=== PATIENT | female | born 1955 | race Caucasian/White ===

== ENCOUNTER 2024-04-18 13:47 | Observation (INO) | payer MEDICARE ==
[2024-04-18] VITALS (21 sets, daily range): BP systolic 77–143; BP diastolic 38–71
[~2024-04-18] VITALS: Ht 154.9 cm; Wt 91.0 kg
[2024-04-18] MEDS ORDERED: SODIUM CHLORIDE 0.9% 1,000 ML IV ONE (14:10)
[2024-04-18 14:25] LABS: BASO% 0.3 % (0-3); HEMATOCRIT 34.6 % (37.0-47.0); HEMOGLOBIN 11.2 g/dl (12.0-16.0); IMMATURE GRANULOCYTES 0.1 % (0.0-5.0); LYMPH% 17.4 % (15-41); MEAN CELL VOLUME 89.9 fL CALC (80.0-100.0); MEAN CORPUSCULAR HGB 29.1 pG CALC (26.0-32.0); MEAN CORPUSCULAR HGB CONC 32.4 g/dL CAL (32.0-36.0); MONO% 11.2 % (2-13); NEUT# 7.34 thou/uL (2.00-7.15); RED BLOOD COUNT 3.85 mill/uL (4.20-5.60); RED CELL DISTRI WIDTH 14.2 % (11.5-15.5)
[2024-04-18 14:41] LABS: ALBUMIN 3.6 g/dL (3.2-5.0); ALKALINE PHOSPHATASE 84 u/l (38-126); ANION GAP 10 (6-22 (CALC)); BILIRUBIN, TOTAL 1.7 mg/dL (0.02-1.3); BUN 22 mg/dL (8-23); BUN/CREATININE RATIO 27 (12-20 (CALC)); CARBON DIOXIDE 22 mmol/l (22-30); CHLORIDE 109 mmol/l (95-108); CREATININE 0.8 mg/dL (0.5-1.0); ESTIMATED GFR 81 ML/MIN (>=90 (CALC)); POTASSIUM 3.9 mmol/l (3.5-5.1); SGOT/AST 51 u/l (9-36); SODIUM 137 mmol/l (137-146); TOTAL PROTEIN 6.5 g/dL (6.3-8.2)
[2024-04-18] MEDS ORDERED: OMEPRAZOLE DR40 MG PO (14:53)
[2024-04-18] MEDS ORDERED: ZESTRIL10 M1 PO (14:54)
[2024-04-18] MEDS ORDERED: ATORVASTATIN CA40 MG PO (14:54)
[2024-04-18] MEDS ORDERED: CARVEDILOL25 MG PO (14:55)
[2024-04-18] MEDS ORDERED: ASPIRINCHW 81MG PO (14:55)
[2024-04-18] MEDS ORDERED: BRILINTA90 MG PO (14:55)
[2024-04-18] MEDS ORDERED: [UNRECOGNIZED DRUG - OTHER] PO (14:56)
[2024-04-18] MEDS ORDERED: LEXAPRO10 MG PO (14:56)
[2024-04-18 15:29] LABS: URINE BILIRUBIN - DIPSTICK Negative (NEGATIVE); URINE BLOOD DIPSTICK Negative (NEGATIVE); URINE GLUCOSE - DIPSTICK >=1000 mg/dL (NEGATIVE); URINE KETONE Negative (NEGATIVE); URINE LEUK ESTERASE Negative (NEGATIVE); URINE NITRITE - DIPSTICK Negative (Negative); URINE PH 5.5 (4.5-8.0); URINE PROTEIN - DIPSTICK Negative (NEG-TRACE); URINE SPECIFIC GRAVITY 1.015; URINE UROBILINOGEN - DIPSTICK 0.2 E.U./dL (0.2)
[2024-04-18 15:38] LABS: URINE COLOR Dark yellow
[2024-04-18] MEDS ORDERED: SODIUM CHLORIDE 0.9% 1,000 ML IV PRN (16:10)
[2024-04-18] MEDS ORDERED: MAGNESIUM HYDROXIDE 30 ML UDC PO PRN (16:10)
[2024-04-18] MEDS ORDERED: ACETAMINOPHEN 325 MG/TAB PO PRN (16:10)
[2024-04-18] MEDS ORDERED: PATIENT' OWN MED 1 EA DOSE PO PRN (16:32)
[2024-04-18] MEDS ORDERED: MIDODRINE HCL 5 MG TAB PO SCH (17:00)
[2024-04-18] MEDS ORDERED: ATORVASTATIN CALCIUM 40 MG/TAB PO SCH (21:00)
[2024-04-18] MEDS ORDERED: ENOXAPARIN SODIUM 40 MG/0.4 ML SYR SC SCH (21:00)
[2024-04-18] MEDS ORDERED: NYSTATIN 1500 MU/BTL TOP SCH (21:00)
[2024-04-19] VITALS (7 sets, daily range): BP systolic 110–143; BP diastolic 53–71
[2024-04-19 05:11] LABS: BASO% 0.6 % (0-3); EOS% 1.5 % (0-8); HEMOGLOBIN 10.7 g/dl (12.0-16.0); IMMATURE GRANULOCYTES 0.6 % (0.0-5.0); LYMPH% 29.5 % (15-41); MEAN CELL VOLUME 88.4 fL CALC (80.0-100.0); MEAN CORPUSCULAR HGB 29.6 pG CALC (26.0-32.0); MEAN CORPUSCULAR HGB CONC 33.4 g/dL CAL (32.0-36.0); MONO% 13.6 % (2-13); NEUT# 3.93 thou/uL (2.00-7.15); NEUT% 54.2 % (42-76); RED BLOOD COUNT 3.62 mill/uL (4.20-5.60); RED CELL DISTRI WIDTH 14.4 % (11.5-15.5)
[2024-04-19 05:27] LABS: ALBUMIN 2.9 g/dL (3.2-5.0); ALKALINE PHOSPHATASE 82 u/l (38-126); ANION GAP 7 (6-22 (CALC)); BUN 13 mg/dL (8-23); BUN/CREATININE RATIO 20 (12-20 (CALC)); CARBON DIOXIDE 23 mmol/l (22-30); CHLORIDE 113 mmol/l (95-108); CHOLESTEROL HDL RATIO 1.4 (<4.4 (CALC)); CREATININE 0.6 mg/dL (0.5-1.0); ESTIMATED GFR 98 ML/MIN (>=90 (CALC)); HDL CHOLESTEROL 38 mg/dL (39.0-59.0); MAGNESIUM 1.9 mg/dL (1.6-2.3); POTASSIUM 3.9 mmol/l (3.5-5.1); SGOT/AST 18 u/l (9-36); SODIUM 140 mmol/l (137-146); TOTAL CHOLESTEROL 53 mg/dl (0-199); TOTAL PROTEIN 5.5 g/dL (6.3-8.2); TOTAL TRIGLYCERIDES 89 mg/dl (0-149); VLDL CHOLESTROL 18 mg/dl (1-41 (CALC))
[2024-04-19] MEDS ORDERED: LISINOPRIL5 MG PO (07:21)
[2024-04-19] MEDS ORDERED: ESCITALOPRAM 10 MG/TAB PO SCH (09:00)
[2024-04-19] MEDS ORDERED: CARVEDILOL 3.125 MG/TAB PO SCH (09:00)
[2024-04-19] MEDS ORDERED: ASPIRIN 81 MG/TAB PO SCH (09:00)
[2024-04-19] MEDS ORDERED: PANTOPRAZOLE SODIUM Sesquihydr 40 MG/TAB PO SCH (09:00)
== END 2024-04-19 12:38 | disposition home or self-care (01) ==
LOC: ED 13:47 → ED-I 15:29 → ED 15:54 → MS2 15:55
PROVIDERS: Family Medicine; ADMIT Student in an Organized Health Care Education/Training Program; ATTEND Student in an Organized Health Care Education/Training Program
DX: I95.1 Orthostatic hypotension (principal); I47.20 Ventricular tachycardia, unspecified; I11.0 Hypertensive heart disease with heart failure; I50.22 Chronic systolic (congestive) heart failure; I25.10 Atherosclerotic heart disease of native coronary artery without angina pectoris; E78.5 Hyperlipidemia, unspecified; E66.9 Obesity, unspecified; Z20.822 Contact with and (suspected) exposure to COVID-19
CPT/HCPCS: J1650